=== PATIENT | female | born 1975 ===

== ENCOUNTER 2021-07-11 10:20 | Day surgery (SDC) | payer OTHER ==
[~2021-07-11 10:20] MED LIST: CIPRO500 MG PO; LEVSIN/SL0.125 MG PO; NORFLEX30 MG/ML IJ; PROTONIX40 M1 PO; TORADOL15 MG IM; ULTRACET PO; ZANTAC300 MG PO
== END 2021-07-11 16:45 | disposition home or self-care (01) ==
LOC: AMB-ENDOS 10:20
PROVIDERS: ATTEND Surgery
DX: K62.89 Other specified diseases of anus and rectum (principal); Z20.822 Contact with and (suspected) exposure to COVID-19